=== PATIENT | male | born 1955 | race Caucasian/White ===

== ENCOUNTER 2016-08-08 08:14 | Observation (INO) | payer BC ==
[2016-08-08] MEDS ORDERED: NITROGLYCERIN OINT 1 INCH/GM PACKET TOPICAL STA (08:32)
--- NOTE | 2016-08-08 08:35 | ED ---
Chest Pain HPI - General Chief Complaint: Chest Pain Stated Complaint: chest pain Time Seen by Provider: 08/08/16 08:18 Source: patient, RN notes reviewed Mode of arrival: ambulatory Limitations: no limitations - History of Present Illness Initial Comments: This is a 60-year-old male with a history of heart disease who states he's not feeling well for the past 3 days. He's had some fevers and chills some body aches some numbness all over. He also states she's been having some chest pain mostly between his shoulders currently is 3-5/10 severity gets higher. He has any history of a cardiac stent about 7 years ago. He is still a smoker. He denies any overt cough or phlegm production dysuria hematuria or other symptoms no rhinorrhea no earaches sore throat. She also states that he had an episode yesterday where his right hand never a white and then turn blue he had put it under warm water. He does not have any history of Lakesha DIOP Complaint: chest pain, other - Related Data Home Medications Medication Instructions Recorded Confirmed Atorvastatin [Lipitor] 40 mg PO HS 02/10/15 08/08/16 Clopidogrel Bisulfate [Plavix] 75 mg PO DAILY 02/10/15 08/08/16 Hydrochlorothiazide [Hydrodiuril] 25 mg PO DAILY 02/10/15 08/08/16 Losartan Potassium 100 mg PO DAILY 02/10/15 08/08/16 Metoprolol Tartrate [Lopressor] 50 mg PO BID 02/10/15 08/08/16 Oxybutynin Chloride [Oxybutynin 15 mg PO DAILY 02/10/15 08/08/16 Chloride ER] Aspirin EC [Ecotrin Low Dose] 81 mg PO DAILY 08/08/16 08/08/16 Allergies Allergy/AdvReac Type Severity Reaction Status Date / Time No Known Allergies Allergy Verified 08/08/16 08:56 Review of Systems ROS Statement: Those systems with pertinent positive or pertinent negative responses have been documented in the HPI. ROS Other: All systems not noted in ROS Statement are negative. EKG Findings - EKG Results: EKG: interpreted by JERMAINE, sinus rhythm (EKG shows normal sinus rhythm of 80. R1 70 QRS 80 QT/QTC 332/382 st-t wave changes.) Past Medical History Past Medical History: Coronary Artery Disease (CAD), Cancer, Hyperlipidemia, Hypertension Additional Past Medical History / Comment(s): prostate cancer History of Any Multi-Drug Resistant Organisms: None Reported Past Surgical History: Heart Catheterization With Stent, Prostate Surgery Past Psychological History: No Psychological Hx Reported Smoking Status: Current every day smoker Past Alcohol Use History: Daily Past Drug Use History: None Reported General Exam - General Exam Comments Initial Comments: This is a well-developed well-nourished awake alert oriented x 3 male Limitations: no limitations General appearance: alert, in no apparent distress Head exam: Present: atraumatic, normocephalic, normal inspection Eye exam: Present: normal appearance, PERRL, EOMI. Absent: scleral icterus, conjunctival injection, periorbital swelling ENT exam: Present: normal exam, mucous membranes moist Neck exam: Present: normal inspection. Absent: tenderness, meningismus, lymphadenopathy Respiratory exam: Present: normal lung sounds bilaterally. Absent: respiratory distress, wheezes, rales, rhonchi, stridor Cardiovascular Exam: Present: regular rate, normal rhythm, normal heart sounds. Absent: systolic murmur, diastolic murmur, rubs, gallop, clicks GI/Abdominal exam: Present: soft, normal bowel sounds. Absent: distended, tenderness, guarding, rebound, rigid Extremities exam: Present: normal inspection, full ROM, normal capillary refill. Absent: tenderness, pedal edema, joint swelling, calf tenderness Back exam: Present: normal inspection Neurological exam: Present: alert, oriented X3, CN II-XII intact Psychiatric exam: Present: normal affect, normal mood Skin exam: Present: warm, dry, intact, normal color. Absent: rash Course Vital Signs 08/08/16 08/08/16 08/08/16 08:21 09:19 11:13 Temperature 97 F L Pulse Rate 94 64 70 Respiratory 18 18 18 Rate Blood Pressure 169/75 115/66 102/55 O2 Sat by Pulse 94 L 96 99 Oximetry 08/08/16 12:13 Temperature Pulse Rate 75 Respiratory 16 Rate Blood Pressure 119/62 O2 Sat by Pulse 98 Oximetry Chest Pain MDM - MDM Reevaluation patient reveals no further chest pain at this time. I did discuss the case with him and his family as well as with Rashard the patient will be admitted for evaluation by cardiology. Disposition Clinical Impression: Unstable angina pectoris Disposition: ADMITTED IP TO THIS HOSP Condition: Stable Referrals: Tomas Wetzel MD [Primary Care Provider] - 1-2 days
--- NOTE | 2016-08-08 08:49 | XR ---
EXAMINATION TYPE: XR chest 2V DATE OF EXAM: 08/08/2016 COMPARISON: 03/24/2010 HISTORY: Shortness of breath TECHNIQUE: Frontal and lateral views of the chest are obtained. FINDINGS: Scattered senescent parenchymal changes noted. Hyperinflation compatible with COPD. No evidence for infiltrate. No evidence for atelectasis. Heart size is stable. Mediastinal structures are stable and grossly unremarkable. No evidence for hilar prominence. Degenerative changes dorsal spine. IMPRESSION: 1. No evidence for acute pulmonary disease.
[2016-08-08 09:00] LABS: Aty Lym Flag Slight; CH 33.6; CHCM 35.2; HDW 2.21; HGB 14.4 gm/dL (13.0-17.5); MCH 33.7 pg (25.0-35.0); MCHC 35.1 g/dL (31.0-37.0); MCV 96.1 fL (80.0-100.0); Mean Platelet Volume 6.7; RBC 4.27 m/uL (4.30-5.90); RDW 13.5 % (11.5-15.5); WBC 10.4 k/uL (3.8-10.6); WBC (Perox) 9.78
[2016-08-08 09:10] LABS: ALT 39 U/L (21-72); AST 38 U/L (17-59); Alkaline Phosphatase 88 U/L (38-126); Amylase 55 U/L (30-110); Anion Gap 11 mmol/L; Blood Urea Nitrogen 15 mg/dL (9-20); Calcium 9.6 mg/dL (8.4-10.2); Carbon Dioxide 27 mmol/L (22-30); Chloride 95 mmol/L (98-107); Glucose 111 mg/dL (74-99); Magnesium 1.6 mg/dL (1.6-2.3); Non-African American GFR(MDRD) >60 (>60 ml/min/1.73 sqM); Potassium 3.7 mmol/L (3.5-5.1); Sodium 133 mmol/L (137-145); Total Bilirubin 1.1 mg/dL (0.2-1.3); Total Protein 7.4 g/dL (6.3-8.2)
[2016-08-08 09:13] LABS: INR 1.1 (<1.1); Partial Thromboplastin Time 23.1 sec (22.0-30.0); Prothrombin Time 11.3 sec (9.0-12.0)
[2016-08-08] MEDS ORDERED: RX INFO: IV CONTRAST WAS GIVEN 1 EACH MISC MISCELLANE PRN (09:34)
[2016-08-08 09:40] LABS: Add Differential Manual Differential
[2016-08-08 09:45] LABS: Nucleated Red Blood Cells 0 /100 WBC (0-0); Total Cells Counted 100
[2016-08-08 09:46] LABS: Creatine Kinase 73 U/L (55-170)
[2016-08-08 09:59] LABS: Creatine Kinase MB 0.3 ng/mL (0.0-2.4); Troponin I <0.012 ng/mL (0.000-0.034)
--- NOTE | 2016-08-08 10:47 | CT ---
EXAMINATION TYPE: CT angio chest DATE OF EXAM: 08/08/2016 10:38 AM COMPARISON: NONE HISTORY: Chest pains CT DLP: 229.5 mGycm Automated exposure control for dose reduction was used. CONTRAST: CTA scan of the thorax is performed with IV Contrast, patient injected with 100 mL of Omnipaque 350, pulmonary embolism protocol. . FINDINGS: There are bullous changes in the upper lobes. There is emphysematous changes throughout the lungs. No parenchymal nodules are seen. There is some shotty mediastinal adenopathy. No pathologically enlarged axillary, mediastinal or alvin r adenopathy is seen. There is no evidence of pulmonary embolus. The aorta is normal in caliber without evidence of dissection There is no pleural or pericardial fluid. The heart is not enlarged. There is a hypoattenuating 6.2 cm lesion arising from the upper pole of the right kidney. This likely represents a cyst. Visualized portions of the upper abdomen are otherwise unremarkable. There is hypertrophic spondylosis within the dorsal spine. No bony destructive lesion is seen. IMPRESSION: 1. THIS EXAMINATION IS NEGATIVE FOR PULMONARY EMBOLUS. 2. BULLOUS EMPHYSEMATOUS CHANGES THROUGHOUT THE LUNGS. 3. PROBABLE SIMPLE CYST ARISING THE UPPER POLE OF THE RIGHT KIDNEY. THIS COULD BE CONFIRMED WITH ULTR ASOUND. 4. DEGENERATIVE CHANGES WITHIN THE SPINE.
[2016-08-08] MEDS ORDERED: NITROGLYCERIN SL TABS 0.4 MG TAB SUBLINGUAL PRN ×3 (12:27→14:22)
[2016-08-08] MEDS ORDERED: HEPARIN SODIUM,PORCINE 5,000 UNIT/ML 1 ML VIAL IV ONE (12:27)
[2016-08-08] MEDS ORDERED: HEPARIN SODIUM,PORCINE/D5W PMX 25,000 UNIT in DEXTROSE/WATER 1 500ML.BAG IV SCH (12:30)
[2016-08-08] MEDS: SODIUM CHLORIDE 0.9% 1,000 ML IV SCH (12:46)
--- NOTE | 2016-08-08 12:58 | P.HPIM ---
History of Present Illness Chief complaint: Chest pain History of present illness: The patient is a 60-year-old male with a previous history of coronary artery disease presented to the emergency room with complaints of chest pain that was occurring while usually he's been walking, in the substernal area and at times: back to the shoulder blades. States he's had some chills and fevers over the last couple days. No unusual cough or phlegm production or hemoptysis. Pain does not seem to last long and usually stops at rest. Previous history of stenting. The patient still has risk factor of smoking history. Past medical history: The patient did have a percutaneous angioplasty performed back in March 2010. History of hypertension History of hyperlipidemia History of tobacco use History of previous prostate malignancy and radical prostatectomy in 2012 History of colonic polyps Home medications Lipitor 40 mg Plavix 75 mg Hydrochlorothiazide 25 mg Losartan 100 mg Lopressor 50 mg twice a day Oxybutynin 15 mg daily Aspirin 81 mg daily No known ALLERGIES Review of systems: As in the history of present illness. Patient denies any headache or visual disturbances. Mild shortness of breath with exertion. No cough. No phlegm production. No nausea or vomiting. No dysuria or hematuria. No diarrhea or blood in stool. No unusual leg edema. Family history: Brother with diabetes. Social history: The patient does smokes daily. Lives locally with his . Denies any excessive alcohol intake. Physical examination: The patient seen in emergency room on the stretcher. He overall appears comfortable and in no acute distress. Vital signs revealed a blood pressure varying from 169/75 down 202/55 and presently 119/62 with a pulse of 75 and respirations 16 and 98% saturation. Head is atraumatic. Extraocular movements intact. Pupils equal and reactive to light. Head and neck is supple without adenopathy, thyromegaly or bruits detected. Lungs were clear to auscultation. No generally diminished. Heart tones regular with normal S1 and S2 and no murmurs. Abdomen is soft and nontender without organomegaly. Rectal and genital exam was deferred. No edema. Neurologically he is alert and oriented. No cranial nerve deficits. Moving all extremities without focal weakness. Laboratory results: White count was 10.4 with a hemoglobin 14.4 and a platelet count of 300. INR is 1.1. D-dimer is elevated 0.77. Sodium is 133 with potassium 3.7. BUN of 15 with creatinine of 0.75 given him a GFR greater than 60. Blood sugar was 111. CPK was normal at 73 and troponin less than 0.012. BNP 264. Liver function tests good. EKG showed a normal sinus rhythm without ischemic changes. Chest x-ray showed no evidence of acute pulmonary disease Patient did undergo a chest CT angiogram This was negative for pulmonary embolus. It did show some bullous changes of emphysema throughout the lungs. Likely cyst in the right kidney and degenerative changes of the spine. Impressions: 1. Somewhat atypical chest pain but may be consistent with angina and possible unstable. No evidence for a definitive cardiac ischemia at this time. She does have multiple risk factors as delineated in the past medical history along with previous history of coronary artery disease. 2. Likely right renal cyst on computed tomography scan. Plans: Patient is to be observed and have consult with cardiology for further evaluation. Further EKG and enzymes to be done. He is to be kept nothing by mouth in the morning for possible further evaluation per cardiology. He is to continue on heparin and his medications for blood pressure and nitroglycerin. Ultrasound of the kidney later when stable. Past Medical History Past Medical History: Coronary Artery Disease (CAD), Cancer, Hyperlipidemia, Hypertension Additional Past Medical History / Comment(s): prostate cancer History of Any Multi-Drug Resistant Organisms: None Reported Past Surgical History: Heart Catheterization With Stent, Prostate Surgery Past Psychological History: No Psychological Hx Reported Smoking Status: Current every day smoker Past Alcohol Use History: Daily Past Drug Use History: None Reported Medications and Allergies Home Medications Medication Instructions Recorded Confirmed Type Atorvastatin [Lipitor] 40 mg PO HS 02/10/15 08/08/16 History Clopidogrel Bisulfate [Plavix] 75 mg PO DAILY 02/10/15 08/08/16 History Hydrochlorothiazide [Hydrodiuril] 25 mg PO DAILY 02/10/15 08/08/16 History Losartan Potassium 100 mg PO DAILY 02/10/15 08/08/16 History Metoprolol Tartrate [Lopressor] 50 mg PO BID 02/10/15 08/08/16 History Oxybutynin Chloride [Oxybutynin 15 mg PO DAILY 02/10/15 08/08/16 History Chloride ER] Aspirin EC [Ecotrin Low Dose] 81 mg PO DAILY 08/08/16 08/08/16 History Allergies Allergy/AdvReac Type Severity Reaction Status Date / Time No Known Allergies Allergy Verified 08/08/16 08:56 Physical Exam Vitals: Vital Signs Temp Pulse Resp BP Pulse Ox 08/08/16 12:13 75 16 119/62 98 08/08/16 11:13 70 18 102/55 99 08/08/16 09:19 64 18 115/66 96 08/08/16 08:21 97 F L 94 18 169/75 94 L Intake and Output 08/07/16 08/08/16 08/08/16 22:59 06:59 14:59 Other: Weight 63.503 kg Patient Weight 08/09/16 06:59 Weight 63.503 kg Results CBC & Chem 7: 08/08/16 08:25 08/08/16 08:25 Labs: Abnormal Lab Results - Last 24 Hours (Table) 08/08/16 08/08/16 08/08/16 Range/Units 08:25 08:25 08:25 RBC 4.27 L (4.30-5.90) m/uL Monocytes # (Manual) 1.2 H (0-1.0) k/uL D-Dimer 0.77 H (<0.60) mg/L FEU Sodium 133 L (137-145) mmol/L Chloride 95 L (98-107) mmol/L Glucose 111 H (74-99) mg/dL
[2016-08-08] MEDS ORDERED: SODIUM CHLORIDE 0.9% 1,000 ML in EMPTY BAG 1 BAG IV ONE (14:16)
[2016-08-08] MEDS ORDERED: ALPRAZolam 0.25 MG TAB PO PRN ×2 (14:16→14:22)
[2016-08-08] MEDS ORDERED: ALPRAZolam 0.5 MG TAB PO PRN ×2 (14:16→14:22)
[2016-08-08] MEDS ORDERED: ATORVASTATIN 80 MG TAB PO STA ×2 (14:16→14:24)
[2016-08-08] MEDS ORDERED: ASPIRIN 325 MG TAB PO STA ×2 (14:16→14:24)
--- NOTE | 2016-08-08 14:41 | CONS ---
DATE OF CONSULTATION: CHIEF COMPLAINT: Chest pain. Jayson is a 60-year-old gentleman who comes to hospital with chest pain. He describes it as a precordial chest pressure, associated with some shortness of breath. There is no history of pain that radiated to neck or arm. At the time of my evaluation, he is comfortable at rest. He has known coronary artery disease and had prior angioplasty. He also has peripheral vascular disease and underwent stent in his right leg. At the time of my evaluation, first set of troponin is negative. D-dimer was elevated. Hence he had a CTA of the chest that is negative for pulmonary embolism. He has bullous emphysema with COPD. Given his known coronary artery disease and symptoms suggestive of unstable angina, I advised the patient to undergo cardiac catheterization with a view to performing angioplasty. He has been explained of risks, benefits, and alternatives, understood and accepted. Past medical history is significant for coronary artery disease, status post angioplasty, hypertension, dyslipidemia, peripheral vascular disease, status post angioplasty of the right leg. Medications include Lipitor 40 q. daily, Lopressor 50 b.i.d., losartan 100 q. daily, HydroDIURIL, Plavix and aspirin. ALLERGIES: There are no known drug allergies. FAMILY HISTORY: Negative for premature coronary artery disease. SOCIAL HISTORY: Significant for smoking. There is no history of EtOH abuse, or drug abuse. REVIEW OF SYSTEMS: HEENT: Unremarkable. CARDIAC: As described above. RESPIRATORY: Negative. GI: Negative. GENITOURINARY: Negative. ALLERGY/IMMUNOLOGY: Negative. SKIN: Negative. MUSCULOSKELETAL: Significant for arthritis. PSYCHOSOCIAL: Negative. ENDOCRINE: Negative. DERMATOLOGY: Negative. CONSTITUTIONAL: Negative. ONCOLOGICAL: Negative The rest of the system review is not relevant. On exam, he is comfortable at rest. Afebrile. Vital signs are stable. There is no jugular venous distention. Carotid upstroke is normal. There is no bruit. Chest exam reveals good air entry bilaterally. Heart exam reveals first and second heart sounds. No gallop. No murmur, no rub. Abdomen is soft, nontender. Exam of extremities did not reveal any edema. Peripheral pulses are felt. 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 Labs show a hemoglobin of 14.4. Creatinine is 0.7. Troponin is negative. D-dimer is elevated. CT chest is negative. ASSESSMENT: 1. Unstable angina in a patient with known coronary artery disease, status post prior angioplasty. 2. Peripheral vascular disease, status post angioplasty. 3. Hypertension. 4. Dyslipidemia. 5. Smoking. PLAN: I advised the patient to quit smoking, advised him to undergo cardiac catheterization. Will obtain a 2-D echo.
[2016-08-08] MEDS ORDERED: HEPARIN SODIUM,PORCINE 5,000 UNIT/ML 1 ML VIAL IV STA (18:59)
[2016-08-08] MEDS: ATORVASTATIN 40 MG TAB PO SCH (20:29)
[2016-08-08] MEDS: METOPROLOL TARTRATE 50 MG TAB PO SCH (20:29)
[2016-08-08] MEDS: ACETAMINOPHEN TAB 325 MG TAB PO PRN (20:29)
[2016-08-08] MEDS: NITROGLYCERIN OINT 1 INCH/GM PACKET TOPICAL SCH (20:32)
[2016-08-09] MEDS: NITROGLYCERIN OINT 1 INCH/GM PACKET TOPICAL SCH ×2 (01:24→05:17)
[2016-08-09] MEDS ORDERED: HEPARIN SODIUM,PORCINE 5,000 UNIT/ML 1 ML VIAL IV PRN (01:35)
[2016-08-09] MEDS: ACETAMINOPHEN TAB 325 MG TAB PO PRN ×3 (03:14→23:18)
[2016-08-09] MEDS: LOSARTAN 50 MG TAB PO SCH (07:40)
[2016-08-09] MEDS: OXYBUTYNIN 15 MG TAB.ER.24 PO SCH (07:40)
[2016-08-09] MEDS: METOPROLOL TARTRATE 50 MG TAB PO SCH ×2 (07:40→21:19)
[2016-08-09] MEDS: CLOPIDOGREL 75 MG TAB PO SCH (07:40)
[2016-08-09] MEDS: ASPIRIN 325 MG TAB PO SCH (07:41)
[2016-08-09] MEDS: HYDROCHLOROTHIAZIDE 25 MG TAB PO SCH (07:41)
--- NOTE | 2016-08-09 08:21 | P.PN ---
Progress Note - Text The patient is a 60-year-old male with a previous history of coronary artery disease and stenting that presented yesterday with chest pain. Patient does have multiple risk factors is the does have tobacco dependence, hypertension, hyperlipidemia. This morning apparently he is up in the shower. Vital signs reveal a temperature of 98.4 up to 101. Pulse is 81 with respirations 18 and blood pressure 102/57 and he is 94% saturated on room air. Laboratory results: Patient is on heparin with a PTT of 48.1. Troponins have been less than 0.0123 now. Impressions and plans: This gentleman who is 60 years old presented with chest pain to the emergency room yesterday and with multiple risk factors as delineated above. But also with elevated temperatures and general achiness intermittently that is consistent possibly with a viral syndrome. Chest x-ray has been negative. We'll repeat his CBC. We'll obtain a urinalysis. Discussed with cardiology. Dr. Killian wishes to hold off on catheterization at this time in light of the elevated temperatures. We have ordered a urinalysis and urine cultures along with 2 blood cultures to be obtained. We'll hold off on antibiotics at this time.
--- NOTE | 2016-08-09 08:52 | PN ---
A 60-year-old gentleman who was admitted to hospital with unstable angina. I evaluated him yesterday and was going to do a cardiac cath on him today. His CT chest was negative for pulmonary embolism; however, overnight he developed febrile illness, his T-max is around 102.2. He is otherwise doing well. Denies chest pain or difficulty in breathing. I am going to cancel the cath today, stop the IV heparin and put him on subQ heparin. He is on aspirin, Lipitor, Plavix, Lopressor and nitrates. On exam, comfortable at rest. Vital signs are stable. There is no jugular venous distention. Chest exam reveals good air entry bilaterally. Heart exam reveals first and second heart sounds. No gallop. No murmur, no rub. Abdomen is soft, nontender. Exam of extremities did not reveal any edema. Peripheral pulses are felt. ASSESSMENT: 1. Chest pain myocardial infarction ruled out. 2. Febrile illness, currently under work-up. PLAN: Will stop the IV heparin. Follow the echocardiogram, canceled the cath and consider pursue the work-up for the fever. Blood cultures have been ordered and if he is doing well, home tomorrow. I will follow him up and consider an outpatient stress test on him.
[2016-08-09 09:19] LABS: Aty Lym Flag Slight; CH 33.5; CHCM 36.1; HCT 39.2 % (39.0-53.0); HDW 2.36; HGB 14.1 gm/dL (13.0-17.5); MCH 33.6 pg (25.0-35.0); MCHC 36.1 g/dL (31.0-37.0); MCV 93.2 fL (80.0-100.0); Mean Platelet Volume 6.7; RBC 4.21 m/uL (4.30-5.90); WBC 8.7 k/uL (3.8-10.6); WBC (Perox) 8.89
[2016-08-09 10:10] LABS: Add Differential Manual Differential
[2016-08-09 10:12] LABS: Manual Review Performed; Nucleated Red Blood Cells 0 /100 WBC (0-0); Total Cells Counted 100
[2016-08-09 10:54] VITALS: BMI 20.6
[2016-08-09] MEDS: ISOSORBIDE MONONITRATE ER 30 MG TAB.ER.24H PO SCH (10:59)
--- NOTE | 2016-08-09 12:14 | ECHOF ---
Referral Reason:chest pain MEASUREMENTS -------- HEIGHT: 170.2 cm WEIGHT: 59.4 kg BP: 107/56 IVSd: 1.2 cm (0.6 - 1.1) LVIDd: 3.6 cm (3.9 - 5.3) LVPWd: 1.1 cm (0.6 - 1.1) IVSs: 1.5 cm LVIDs: 2.3 cm LVPWs: 1.4 cm LAESV Index (A-L): 7.02 ml/m Ao Diam: 3.7 cm (2.0 - 3.7) AV Cusp: 1.9 cm (1.5 - 2.6) LA Diam: 2.6 cm (2.7 - 3.8) MV E Gregory: 0.66 m/s MV DecT: 359 ms MV A Gregory: 1.00 m/s MV E/A Ratio: 0.66 RAP: 5.00 mmHg RVSP: 9.94 mmHg FINDINGS -------- Sinus rhythm. This was a technically adequate study. Overall left ventricular systolic function is normal with, an EF between 60 - 65 %. The right ventricle is normal in size and function. Normal LA size by volume 22+/-6 ml/m2. The right atrium is normal in size. Aortic valve is trileaflet and is mildly thickened. There is no evidence of aortic regurgitation. There is no evidence of aortic stenosis. Mild mitral annular calcification present. There is trace to mild mitral regurgitation. Trace tricuspid regurgitation present. There is no evidence of pulmonary hypertension. The right ventricular systolic pressure, as measured by Doppler, is 9.94mmHg. The pulmonic valve is normal. The aortic root size is normal. Normal inferior vena cava with normal inspiratory collapse consistent with estimated right atrial pressure of 5 mmHg. The pericardium is normal. There is no pericardial effusion. CONCLUSIONS -------- 1. Sinus rhythm. 2. The aortic root size is normal. 3. There is no pericardial effusion. 4. Overall left ventricular systolic function is normal with, an EF between 60 - 65 %. 5. Normal LA size by volume 22+/-6 ml/m2. 6. Aortic valve is trileaflet and is mildly thickened. 7. Mild mitral annular calcification present. 8. There is trace to mild mitral regurgitation. 9. Trace tricuspid regurgitation present. 10. There is no evidence of pulmonary hypertension. 11. The right ventricular systolic pressure, as measured by Doppler, is 9.94mmHg. DOCK MANAGER: Lui Canseco RDCS
[2016-08-09 12:39] LABS: Appearance,Urine Clear (Clear); Bilirubin,Urine Negative (Negative); Glucose,Urine (UA) Negative (Negative); Ketones,Urine Negative (Negative); Leukocyte Esterase,Urine Negative (Negative); Nitrite,Urine Negative (Negative); PH, Urine 7.5 (5.0-8.0); Protein,Urine Negative (Negative); Specific Gravity,Urine 1.011 (1.001-1.035); UA Billing (MACRO vs. MICRO) CHEM
[2016-08-09] MEDS: SODIUM CHLORIDE 0.9% 1,000 ML IV SCH (16:34)
[2016-08-09] MEDS: ATORVASTATIN 40 MG TAB PO SCH (21:19)
--- NOTE | 2016-08-10 07:54 | P.DS ---
Providers Date of admission: 08/08/16 12:27 Attending physician: Tomas Wetzel Consults: 08/08/16 12:27 Consult Physician Urgent Consulting Provider: Thelma Lord Consult Reason/Comments: Chest pain Do you want consulting provider notified?: Yes Primary care physician: Tomas Wetzel The patient is a 60-year-old gentleman with the presentation to the emergency room of chest pain and weakness. Patient to also had a strong history with previous coronary artery disease and stenting in the past along with other risk factors tobacco dependence, hypertension and hyperlipidemia. Patient placed in observation was also placed on heparin and troponins evaluated to 3 which were less than 0.12. EKG did not show any definitive changes. Chest x-ray did not show any acute infiltrates and his urinalysis was clear. Other testing with echocardiogram revealed ejection fraction of 60-65%. No pericardial infusion effusion was seen. Normal left atrial size. Patient did have intermittent temperatures during the course of his observation. He was seen in consultation by cardiology and please refer to the consult. Initially cardiac catheterization was entertained but with recurrent temperatures this was placed to on hold. Cultures have been ordered but still at this point no definite sign of infection although patient does complain of some loose and painful teeth on further questioning. At this time his temperature decreased from 100.9 down to 98.2 and his heart rate is 68 respirations 18 and blood pressure 105/56. O2 saturation is 97 on room air. Lung and heart examination is clear at this time. Abdomen is nontender. No neurological changes noted. The patient has been up and ambulating on the observation floor without arrhythmias or chest pain or other acute symptomatology. At this time plans are to discharge to home with follow-up next week in the office. And follow-up with [facility]. Likely will need further cardiac evaluation with stress testing as discussed with patient. Discharge medications, patient to continue his home medications Atorvastatin 40 mg at at bedtime Oxybutynin 15 mg daily Lopressor 50 mg twice a day Losartan 100 mg daily Hydrochlorothiazide 25 mg daily Plavix 75 mg daily Aspirin 81 mg daily We will also be adding amoxicillin 500 mg, 2 tablets twice a day for 7 days. Smoking cessation discussed and low cholesterol diet recommended. Discharge diagnoses: 1. Chest pain, pleurisy likely related to viral illness. 2. Coronary artery disease with previous stenting back in 2010. 3. Hypertension 4. Hyperlipidemia 5. Continued tobacco usage 5. History of prostate cancer and radical prostatectomy in 2012 6. History of colon polyps. 7. Periodontal infection Patient Condition at Discharge: Stable Plan - Discharge Summary New Discharge Prescriptions: No Action Oxybutynin Chloride [Oxybutynin Chloride ER] 15 mg PO DAILY Metoprolol Tartrate [Lopressor] 50 mg PO BID Hydrochlorothiazide [Hydrodiuril] 25 mg PO DAILY Clopidogrel Bisulfate [Plavix] 75 mg PO DAILY Losartan Potassium 100 mg PO DAILY Atorvastatin [Lipitor] 40 mg PO HS Aspirin EC [Ecotrin Low Dose] 81 mg PO DAILY Discharge Medication List Atorvastatin [Lipitor] 40 mg PO HS 02/10/15 [History] Clopidogrel Bisulfate [Plavix] 75 mg PO DAILY 02/10/15 [History] Hydrochlorothiazide [Hydrodiuril] 25 mg PO DAILY 02/10/15 [History] Losartan Potassium 100 mg PO DAILY 02/10/15 [History] Metoprolol Tartrate [Lopressor] 50 mg PO BID 02/10/15 [History] Oxybutynin Chloride [Oxybutynin Chloride ER] 15 mg PO DAILY 02/10/15 [History] Aspirin EC [Ecotrin Low Dose] 81 mg PO DAILY 08/08/16 [History] Follow up Appointment(s)/Referral(s): Tomas Wetzel MD [Primary Care Provider] - 1-2 days
[2016-08-10 07:55] LABS: Aty Lym Flag Slight; CH 33.7; CHCM 35.9; HCT 37.9 % (39.0-53.0); HDW 2.34; HGB 13.6 gm/dL (13.0-17.5); MCH 33.8 pg (25.0-35.0); MCHC 35.8 g/dL (31.0-37.0); MCV 94.3 fL (80.0-100.0); RBC 4.02 m/uL (4.30-5.90); RDW 12.8 % (11.5-15.5); WBC 7.6 k/uL (3.8-10.6); WBC (Perox) 7.83
[2016-08-10 08:20] VITALS: BP 109/66; PULSE 52; RESP 16; TEMP 98.7
--- NOTE | 2016-08-10 09:25 | PN ---
Jayson is a 61-year-old gentleman who is admitted to hospital with chest pain. Subsequently had fever and had just been started on antibiotics. He is feeling much better now. Vital signs are stable. There is no jugular venous distention. Chest exam reveals good air entry bilaterally. Heart exam reveals first and second heart sounds. No gallop. Abdomen is soft. Exam of the extremities did not reveal edema. Peripheral pulses are felt. ASSESSMENT: 1. Chest pain, myocardial infarction ruled out. 2. Febrile illness of unclear etiology. PLAN: Patient is stable to be discharged home and I will consider an outpatient stress test on him.
[2016-08-10] MEDS: ASPIRIN 325 MG TAB PO SCH (10:01)
[2016-08-10] MEDS: HYDROCHLOROTHIAZIDE 25 MG TAB PO SCH (10:01)
[2016-08-10] MEDS: METOPROLOL TARTRATE 50 MG TAB PO SCH (10:01)
[2016-08-10] MEDS: LOSARTAN 50 MG TAB PO SCH (10:01)
[2016-08-10] MEDS: ISOSORBIDE MONONITRATE ER 30 MG TAB.ER.24H PO SCH (10:01)
[2016-08-10] MEDS: CLOPIDOGREL 75 MG TAB PO SCH (10:01)
[2016-08-10] MEDS: OXYBUTYNIN 15 MG TAB.ER.24 PO SCH (10:02)
[2016-08-10 10:51] LABS: Add Differential Manual Differential
[2016-08-10 10:54] LABS: Manual Review Performed; Nucleated Red Blood Cells 0 /100 WBC (0-0); RBC Morphology Normal; Total Cells Counted 100
== END 2016-08-10 09:51 | disposition home or self-care (01) ==
LOC: EC 08:14 → 3OBS 12:27 → UNDODISOB 14:14
PROVIDERS: ADMIT Internal Medicine; ATTEND Internal Medicine
DX: I25.110 Atherosclerotic heart disease of native coronary artery with unstable angina pectoris (principal); F17.200 Nicotine dependence, unspecified, uncomplicated; E78.5 Hyperlipidemia, unspecified; I10 Essential (primary) hypertension; Z85.46 Personal history of malignant neoplasm of prostate; I73.9 Peripheral vascular disease, unspecified; J44.9 Chronic obstructive pulmonary disease, unspecified; Z79.899 Other long term (current) drug therapy; Z79.02 Long term (current) use of antithrombotics/antiplatelets; Z79.82 Long term (current) use of aspirin; Z95.5 Presence of coronary angioplasty implant and graft
CPT/HCPCS: 96366 ×2; 96365; 99285; 36415; 93005; 93306; 85379; 83880; 80053; 82150; 82550; 82553; 83690; 83735; 84484; 85025 ×3; 85610; 85730 ×2; 86140; 81003; 87040; 87086; 87077; 87186; 71020; 71275; G0378 ×3; J1644 ×2; Q9967

== ENCOUNTER → 2016-08-15 | Outpatient (CLI) | payer BC ==
--- NOTE | 2016-08-15 13:23 | US ---
EXAMINATION TYPE: US kidneys/renal and bladder DATE OF EXAM: 08/15/2016 COMPARISON: NONE CLINICAL HISTORY: N28.1 cyst on rt kidney. pt states he was total abnormal urine sample, no complaint s of pain EXAM MEASUREMENTS: Right Kidney: 13.1 x 4.9 x 7.4 cm Left Kidney: 10.7 x 5.8 x 6.0 cm Right Kidney: 5.5 x 5.8 x 5.4cm simple cyst at the upper pole Left Kidney: wnl Bladder: wnl Bilateral Jets seen: no There is no evidence for hydronephrosis at this point in time. No nephrolithiasis is seen. No klever rning solid or cystic masses are identified. A 5.8 cm simple appearing cyst upper pole level of right kidney is noted. The urinary bladder is anechoic. Bilateral ureteral jets are not seen. IMPRESSION: A 5.8 cm simple appearing cyst upper pole level right kidney otherwise unremarkable study.
== END | disposition home or self-care (01) ==
LOC: RADUSWWP 12:52
PROVIDERS: ATTEND Internal Medicine
DX: N28.1 Cyst of kidney, acquired (principal)
CPT/HCPCS: 76770

== ENCOUNTER → 2016-12-06 | Outpatient (CLI) | payer BC ==
--- NOTE | 2016-12-06 09:33 | CT ---
EXAMINATION TYPE: CT urogram wo/w con DATE OF EXAM: 12/06/2016 COMPARISON: Renal ultrasound dated 08/15/2016 HISTORY: Hematuria, history of prostate CA CT DLP: 1758 mGycm, Automated Exposure Control for Dose Reduction was Utilized. CONTRAST: CT scan of the abdomen and pelvis is performed with oral and without and with IV Contrast, patient in jected with 100 mL of Omnipaque 300. FINDINGS: LUNG BASES: No significant abnormality is appreciated. LIVER/GB: No significant abnormality is appreciated. No radiopaque gallstones. PANCREAS: Hypoattenuated structure within the uncinate process of the pancreas is seen and could repr esent volume averaging from the adjacent duct versus focal lesion measuring approximately 1.1 x 0.8 c m seen on series 6 image 22. There is upstream ductal prominence without enlargement. Remainder the p ancreatic parenchyma enhances homogeneously.. SPLEEN: No significant abnormality is seen. ADRENALS: No significant abnormality is seen. KIDNEYS: There is redemonstration of a simple appearing 6.4 x 5.2 cm exophytic right upper pole renal cyst without internal complexity. Nonobstructing punctate 1 mm right lower pole renal calculus is id entified. No evidence of obstructive uropathy within either kidney. Exophytically emanating from the upper pole of the left kidney there is a fluid attenuated 7 mm probable renal cyst. However this is t oo small to accurately characterize. BOWEL: Few sigmoid diverticula are present without pericolonic fat stranding. PROSTATE/SEMINAL VESICLES: Surgically absent. LYMPH NODES: No greater than 1cm abdominal or pelvic lymph nodes are appreciated. OSSEOUS STRUCTURES: Multilevel degenerative disc disease is seen of the visualized thoracolumbar and lumbosacral spine.. OTHER: Aortoiliac graft is seen demonstrating patency with downstream stenosis of the common iliac ar teries of approximately 50%. Circumferential moderate calcific and noncalcific atheromatous plaquing is seen of the abdominal aorta and its branches. The urinary bladder is incompletely distended incomp letely evaluated only partially filled with contrast, however circumferential urinary bladder wall th ickening is seen that may relate to incomplete distention or cystitis.. IMPRESSION: 1. 6.4 cm right exophytic simple renal cyst without internal complexity. 7 mm left renal lesion that is too small to accurately characterize but likely represents a renal cyst. 2. Circumferential urinary bladder wall thickening that may relate to incomplete distention or cystit is. Correlate with urinalysis. 3. Hypoattenuation within the uncinate process of the pancreas that could represent pancreatic mass v ersus volume averaging with the pancreatic duct. MRCP with and without contrast is recommended to ens ure no underlying pancreatic mass as there is upstream ductal prominence but no enlargement. 4. Sigmoid diverticulosis without evidence of diverticulitis. 5. Aortoiliac graft patency with downstream stenosis of the common iliac arteries approximately 50%. 6. Surgical absence of the prostate.
== END | disposition home or self-care (01) ==
LOC: RADCTMAIN 07:01
PROVIDERS: ATTEND Urology
DX: N28.1 Cyst of kidney, acquired (principal); K57.30 Diverticulosis of large intestine without perforation or abscess without bleeding; Z90.79 Acquired absence of other genital organ(s)
CPT/HCPCS: 74178; 74400; Q9967

== ENCOUNTER → 2016-12-24 | Outpatient (CLI) | payer BC ==
--- NOTE | 2016-12-24 23:53 | MR ---
EXAMINATION TYPE: MR pancreas / mrcp wo/w con DATE OF EXAM: 12/24/2016 COMPARISON: CT scan 12/06/2016 HISTORY: Possible pancreatic mass. CONTRAST: Standard multiplanar, multisequence MRI departmental protocol utilizing 7.5 mL intravenous Gadavist g adolinium contrast. FINDINGS: There is a 5 cm cortical cyst on the upper pole right kidney. There is no adrenal mass. Kid neys show no hydronephrosis. Liver shows no focal defect. Bile ducts are not dilated. There is no evidence of pancreatic mass. Geiger creatic duct has normal size. Specifically there is no evidence of a mass involving the uncinate proc ess of the pancreas. Spleen appears normal. There is no ascites. There is no evidence of pleural effu lorelei. There is no sign of retroperitoneal adenopathy. MRCP images show normal appearing biliary tree. Gallbladder appears normal. I see no gallbladder wall thickening. There is 1 cm atypical cyst on the upper pole of the left kidney. I see no pathologic enhancement. IMPRESSION: Normal pancreas. Normal MRCP exam. Renal cysts.
== END | disposition home or self-care (01) ==
LOC: RADMRIMAIN 19:50
PROVIDERS: ATTEND Internal Medicine
DX: R93.8 Abnormal findings on diagnostic imaging of other specified body structures (principal)
CPT/HCPCS: 74183; A9581

== ENCOUNTER 2017-06-26 06:12 | Emergency (ER) | payer BC ==
[2017-06-26 06:21] VITALS: BP 146/85; PULSE 81; RESP 18; TEMP 97.6
[2017-06-26] MEDS ORDERED: OXYMETAZOLINE 0.05% NASL SPRAY 1 SPRAY BOTTLE NASAL STA (07:19)
--- NOTE | 2017-06-26 07:42 | ED ---
General Adult HPI - General Chief complaint: Recheck/Abnormal Lab/Rx Stated complaint: NOSE BLEED Time Seen by Provider: 06/26/17 07:09 Source: patient Mode of arrival: ambulatory Limitations: no limitations - History of Present Illness Initial comments: Patient presents with a nosebleed. He has epistaxis from the right nostril. He tried holding pressure. It did not work. He denies any lightheadedness or dizziness. He has no chest pain or shortness of breath. He takes aspirin and Plavix, but no other blood thinners. He has no focal weakness or trouble walking. He has no belly or back pain. He has no chest pain. - Related Data Home Medications Medication Instructions Recorded Confirmed Atorvastatin [Lipitor] 40 mg PO HS 02/10/15 06/26/17 Clopidogrel Bisulfate [Plavix] 75 mg PO DAILY 02/10/15 06/26/17 Hydrochlorothiazide [Hydrodiuril] 25 mg PO DAILY 02/10/15 06/26/17 Losartan Potassium 100 mg PO DAILY 02/10/15 06/26/17 Metoprolol Tartrate [Lopressor] 50 mg PO BID 02/10/15 06/26/17 Oxybutynin Chloride [Oxybutynin 15 mg PO DAILY 02/10/15 06/26/17 Chloride ER] Aspirin EC [Ecotrin Low Dose] 81 mg PO DAILY 08/08/16 06/26/17 Previous Rx's Medication Instructions Recorded Cephalexin [Keflex] 500 mg PO Q6HR #40 cap 06/26/17 Allergies Allergy/AdvReac Type Severity Reaction Status Date / Time No Known Allergies Allergy Verified 06/26/17 08:07 Review of Systems ROS Statement: Those systems with pertinent positive or pertinent negative responses have been documented in the HPI. ROS Other: All systems not noted in ROS Statement are negative. Past Medical History Past Medical History: Coronary Artery Disease (CAD), Cancer, Hyperlipidemia, Hypertension, Vascular Disorder Additional Past Medical History / Comment(s): Prostate cancer with prostatectomy , numbness bilateral hands, PVD, recent tooth infection-completed ABX. History of Any Multi-Drug Resistant Organisms: None Reported Past Surgical History: Heart Catheterization With Stent, Hernia Repair, Orthopedic Surgery, Prostate Surgery Additional Past Surgical History / Comment(s): Prostatectomy, PCI with stent to LAD, arteriogram, R common iliac stent, R eye muscle repair as child, colonoscopy, bilateral inquinal hernia repairs, L middle finger fx with surgery. Past Anesthesia/Blood Transfusion Reactions: No Reported Reaction Date of Last Stent Placement:: 03/28/10 Past Psychological History: No Psychological Hx Reported Smoking Status: Current every day smoker Past Alcohol Use History: Daily Past Drug Use History: None Reported - Past Family History Father Additional Family Medical History / Comment(s): Father at the age of 50yrs from brain aneurysm rupture. Mother Family Medical History: Diabetes Mellitus, Pneumonia Additional Family Medical History / Comment(s): Mother of pneumonia at the age of 50yrs. General Exam Limitations: no limitations General appearance: alert, in no apparent distress Head exam: Present: atraumatic, normocephalic, normal inspection Eye exam: Present: normal appearance, PERRL, EOMI. Absent: scleral icterus, conjunctival injection, periorbital swelling ENT exam: Present: normal oropharynx, other (Right nostril epistaxis) Neck exam: Present: normal inspection. Absent: tenderness, meningismus, lymphadenopathy Respiratory exam: Absent: respiratory distress Extremities exam: Present: normal inspection, full ROM, normal capillary refill. Absent: tenderness, pedal edema, joint swelling, calf tenderness Back exam: Present: normal inspection Neurological exam: Present: alert, oriented X3 Psychiatric exam: Present: normal affect Skin exam: Present: warm, dry Course Vital Signs 06/26/17 06:17 Temperature 97.6 F Pulse Rate 81 Respiratory 18 Rate Blood Pressure 146/85 O2 Sat by Pulse 96 Oximetry Medical Decision Making - Medical Decision Making Patient presented with epistaxis. I applied a nasal packing to the right nostril. Epistaxis has resolved. Patient is stable for discharge. He is started on antibiotics. He will follow-up with his primary care doctor and ENT. I instructed him to return to the emerge department immediately if his symptoms return, or if he develops any other proms or complaints. Disposition Clinical Impression: Epistaxis Disposition: HOME SELF-CARE Condition: Good Instructions: Nosebleed (ED) Prescriptions: Cephalexin [Keflex] 500 mg PO Q6HR #40 cap Is patient prescribed a controlled substance at d/c from ED?: No Referrals: Tomas Wetzel MD [Primary Care Provider] - 1-2 days Stefano Jiang DO [Doctor of Osteopathic Medicine] - 1-2 days
--- NOTE | 2017-06-28 10:39 | TCOM ---
Documentation Clarification OP Dear Rafael MURPHY MD Please do addendum for the packing material of Epistaxis procedure. Thank you, Estelle Castelan [employer] If you have any question, Please contact cytogenetics laboratory manager at [phone] [facility]
== END 2017-06-26 08:48 | disposition home or self-care (01) ==
LOC: EC 06:12
DX: R04.0 Epistaxis (principal); E78.5 Hyperlipidemia, unspecified; I10 Essential (primary) hypertension; I25.10 Atherosclerotic heart disease of native coronary artery without angina pectoris; Z85.46 Personal history of malignant neoplasm of prostate; F17.200 Nicotine dependence, unspecified, uncomplicated; Z79.82 Long term (current) use of aspirin; Z79.899 Other long term (current) drug therapy; Z79.02 Long term (current) use of antithrombotics/antiplatelets; Z95.5 Presence of coronary angioplasty implant and graft
CPT/HCPCS: 30901; 36415; 85025; 85610; 96374; 99283

== ENCOUNTER 2017-06-26 16:33 | Emergency (ER) | payer BC ==
[2017-06-26 17:14] VITALS: RESP 18
[2017-06-26] MEDS ORDERED: SODIUM CHLORIDE 0.9% 500 ML IV ONE (17:47)
[2017-06-26] MEDS ORDERED: LABETALOL 5 MG/ML VIAL MDV IVP STA ×2 (17:48→18:13)
[2017-06-26 18:10] LABS: Basophils % (A) 1 %; Eosinophils # (A) 0.2 k/uL (0-0.7); Eosinophils % (A) 3 %; HCT 39.2 % (39.0-53.0); HGB 13.9 gm/dL (13.0-17.5); Lymphocytes # (A) 2.2 k/uL (1.0-4.8); Lymphocytes % (A) 27 %; MCH 33.8 pg (25.0-35.0); MCHC 35.5 g/dL (31.0-37.0); MCV 95.1 fL (80.0-100.0); Mean Platelet Volume 6.5; Monocytes # (A) 0.6 k/uL (0-1.0); Monocytes % (A) 8 %; Neutrophils # (A) 4.7 k/uL (1.3-7.7); Neutrophils % (A) 59 %; Platelet Count 339 k/uL (150-450); RBC 4.13 m/uL (4.30-5.90); RDW 14.5 % (11.5-15.5)
--- NOTE | 2017-06-26 18:10 | ED ---
ENT HPI - General Chief complaint: ENT Stated complaint: Nosebleed Time Seen by Provider: 06/26/17 17:37 Source: patient Mode of arrival: ambulatory Limitations: no limitations - History of Present Illness Initial comments: 61-year-old male patient presents to the emergency department today for evaluation of nosebleed in the right nostril. Patient was seen and evaluated for this here earlier today and did have packing placed to the right nostril. The patient states that throughout the day today the nose has continued to bleed. States that whenever he stands up or moves around it starts dripping from the packing area. Patient states he can still feel the blood going on the back of his throat as well. Patient states that since having the packing and he has developed a headache. Patient states he has not been able to take any of his medications today due to this. Patient does take Plavix and aspirin. No history of nosebleeds. States he is feeling somewhat weak but denies any dizziness. Patient denies any recent rash, fever, chills, shortness breath, chest pain, abdominal pain, nausea, vomiting, diarrhea, constipation, back pain , numbness, tingling, dizziness, weakness, hematuria, dysuria, urinary urgency, urinary frequency, visual changes, or any other complaints. - Related Data Home Medications Medication Instructions Recorded Confirmed Atorvastatin [Lipitor] 40 mg PO HS 02/10/15 06/26/17 Clopidogrel Bisulfate [Plavix] 75 mg PO DAILY 02/10/15 06/26/17 Hydrochlorothiazide [Hydrodiuril] 25 mg PO DAILY 02/10/15 06/26/17 Losartan Potassium 100 mg PO DAILY 02/10/15 06/26/17 Metoprolol Tartrate [Lopressor] 50 mg PO BID 02/10/15 06/26/17 Oxybutynin Chloride [Oxybutynin 15 mg PO DAILY 02/10/15 06/26/17 Chloride ER] Aspirin EC [Ecotrin Low Dose] 81 mg PO DAILY 08/08/16 06/26/17 Previous Rx's Medication Instructions Recorded Cephalexin [Keflex] 500 mg PO Q6HR #40 cap 06/26/17 Allergies Allergy/AdvReac Type Severity Reaction Status Date / Time No Known Allergies Allergy Verified 06/26/17 17:24 Review of Systems ROS Statement: Those systems with pertinent positive or pertinent negative responses have been documented in the HPI. ROS Other: All systems not noted in ROS Statement are negative. Past Medical History Past Medical History: Coronary Artery Disease (CAD), Cancer, Hyperlipidemia, Hypertension, Vascular Disorder Additional Past Medical History / Comment(s): Prostate cancer with prostatectomy , numbness bilateral hands, PVD, recent tooth infection-completed ABX. History of Any Multi-Drug Resistant Organisms: None Reported Past Surgical History: Heart Catheterization With Stent, Hernia Repair, Orthopedic Surgery, Prostate Surgery Additional Past Surgical History / Comment(s): Prostatectomy, PCI with stent to LAD, arteriogram, R common iliac stent, R eye muscle repair as child, colonoscopy, bilateral inquinal hernia repairs, L middle finger fx with surgery. Past Anesthesia/Blood Transfusion Reactions: No Reported Reaction Date of Last Stent Placement:: 03/28/10 Past Psychological History: No Psychological Hx Reported Smoking Status: Current every day smoker Past Alcohol Use History: Daily Past Drug Use History: None Reported - Past Family History Father Additional Family Medical History / Comment(s): Father at the age of 50yrs from brain aneurysm rupture. Mother Family Medical History: Diabetes Mellitus, Pneumonia Additional Family Medical History / Comment(s): Mother of pneumonia at the age of 50yrs. General Exam Limitations: no limitations General appearance: alert, in no apparent distress, other (This is a well- developed, well-nourished adult male patient in no acute distress. Vital signs upon presentation are temperature 97.1F, pulse 110, respirations 18, blood pressure 187/86, pulse ox 98% on room air.) Eye exam: Present: normal appearance, PERRL, EOMI. Absent: scleral icterus, conjunctival injection, periorbital swelling ENT exam: Present: normal exam, normal oropharynx, mucous membranes moist, other (Nasal packing present to the right nostril, there is some minor bleeding from the packing. No evidence of bleeding in the pharynx. ) Respiratory exam: Present: normal lung sounds bilaterally. Absent: respiratory distress, wheezes, rales, rhonchi, stridor Cardiovascular Exam: Present: regular rate, normal rhythm, normal heart sounds. Absent: systolic murmur, diastolic murmur, rubs, gallop, clicks GI/Abdominal exam: Present: soft, normal bowel sounds. Absent: distended, tenderness, guarding, rebound, rigid Neurological exam: Present: alert, oriented X3, CN II-XII intact Psychiatric exam: Present: normal affect, normal mood Skin exam: Present: warm, dry, intact, normal color. Absent: rash Course Vital Signs 06/26/17 06/26/17 06/26/17 17:12 18:03 19:40 Temperature 97.1 F L 97.5 F L Pulse Rate 110 H 98 92 Respiratory 18 18 18 Rate Blood Pressure 187/86 159/90 159/95 O2 Sat by Pulse 98 98 97 Oximetry Medical Decision Making - Medical Decision Making 61-year-old male patient presented to the emergency department today for evaluation of continued bleeding from his nose after packing. Patient had his packing placed earlier today for continued to have bleeding throughout the day. Murocel packing was removed, no evidence of anterior bleeding. I did place a Rhino Rocket packing. Patient had no further bleeding during his stay. Labs reviewed and were unremarkable. Hemoglobin is stable. Patient will be discharged home at this time to follow-up with your nose and throat specialty. He is checked her to complete his antibiotic prescription. He is instructed to return here immediately for any new, worsening, or concerning symptoms. He verbalizes understanding and agrees with this plan. - Lab Data Result diagrams: 06/26/17 17:59 Lab Results 06/26/17 06/26/17 Range/Units 17:59 18:12 WBC 8.0 (3.8-10.6) k/uL RBC 4.13 L (4.30-5.90) m/uL Hgb 13.9 (13.0-17.5) gm/dL Hct 39.2 (39.0-53.0) % MCV 95.1 (80.0-100.0) fL MCH 33.8 (25.0-35.0) pg MCHC 35.5 (31.0-37.0) g/dL RDW 14.5 (11.5-15.5) % Plt Count 339 (150-450) k/uL Neutrophils % 59 % Lymphocytes % 27 % Monocytes % 8 % Eosinophils % 3 % Basophils % 1 % Neutrophils # 4.7 (1.3-7.7) k/uL Lymphocytes # 2.2 (1.0-4.8) k/uL Monocytes # 0.6 (0-1.0) k/uL Eosinophils # 0.2 (0-0.7) k/uL Basophils # 0.0 (0-0.2) k/uL PT 10.4 (9.0-12.0) sec INR 1.1 (<1.2) Disposition Clinical Impression: Epistaxis Disposition: HOME SELF-CARE Condition: Good Instructions: Nosebleed (ED) Additional Instructions: Follow up with ENT specialist as soon as possible. Take antibiotics as directed. Take BP medication as soon as you get home. Return here immediately for any new, worsening, or concerning symptoms. Is patient prescribed a controlled substance at d/c from ED?: No Referrals: Tomas Wetzel MD [Primary Care Provider] - 1-2 days Stefano Jiang DO [Doctor of Osteopathic Medicine] - 1-2 days Time of Disposition: 19:29
[2017-06-26 18:31] LABS: INR 1.1 (<1.2); Prothrombin Time 10.4 sec (9.0-12.0)
[2017-06-26] MEDS ORDERED: CEPHALEXIN 500MG STARTER PACK 4 CAP BTL PO STA (19:27)
[2017-06-26 19:42] VITALS: BP 159/95; PULSE 92; TEMP 97.5
== END 2017-06-26 19:43 | disposition home or self-care (01) ==
LOC: EC 16:33
DX: R04.0 Epistaxis (principal); I25.10 Atherosclerotic heart disease of native coronary artery without angina pectoris; E78.5 Hyperlipidemia, unspecified; I10 Essential (primary) hypertension; I73.9 Peripheral vascular disease, unspecified; F17.200 Nicotine dependence, unspecified, uncomplicated; Z95.5 Presence of coronary angioplasty implant and graft; Z79.02 Long term (current) use of antithrombotics/antiplatelets; Z79.82 Long term (current) use of aspirin; Z79.899 Other long term (current) drug therapy
CPT/HCPCS: 30901; 36415; 85025; 85610; 96374; 99283

== ENCOUNTER → 2018-11-22 | Outpatient (CLI) | payer OTHER ==
[2018-11-22 09:44] LABS: HCT 45.6 % (39.0-53.0); HGB 16.1 gm/dL (13.0-17.5); MCH 34.3 pg (25.0-35.0); MCHC 35.3 g/dL (31.0-37.0); MCV 97.1 fL (80.0-100.0); Mean Platelet Volume 6.2; Platelet Count 292 k/uL (150-450); RDW 13.3 % (11.5-15.5); WBC 5.4 k/uL (3.8-10.6)
[2018-11-22 16:17] LABS: African American GFR (CKD) 109.4 (60.0-200.0); Anion Gap 5.4 mmol/L (4.00-12.00); BUN/Creat Ratio 8.75 Ratio (12.00-20.00); Calcium 9.7 mg/dL (8.7-10.3); Carbon Dioxide 29.6 mmol/L (21.6-31.8); Chol/HDL Ratio 2.98; LDL Cholesterol,Calculated 54.4 mg/dL (0.0-131.0); Potassium 5.3 mmol/L (3.5-5.5); VLDL Calculation 24.6 mg/dL (5.00-40.00)
== END | disposition home or self-care (01) ==
LOC: LABWHC1 08:30
PROVIDERS: ATTEND Nurse Practitioner Family
DX: I10 Essential (primary) hypertension (principal); E78.5 Hyperlipidemia, unspecified; E87.8 Other disorders of electrolyte and fluid balance, not elsewhere classified; I25.10 Atherosclerotic heart disease of native coronary artery without angina pectoris; R79.9 Abnormal finding of blood chemistry, unspecified
CPT/HCPCS: 36415; 80048; 80061; 85027

== ENCOUNTER 2020-01-05 08:01 | Day surgery (SDC) | payer MEDICARE, OTHER ==
[2020-01-01 10:55] VITALS: BMI 21.9
[~2020-01-05 08:01] MED LIST: LACTATED RINGERS 1,000 ML IV SCH
[2020-01-05 08:22] VITALS: TEMP 96.3
[2020-01-05] MEDS ORDERED: PROPOFOL 10 MG/ML 20 ML VIAL IV ONE (08:55)
--- NOTE | 2020-01-05 09:00 | P.GSHP ---
History of Present Illness H&P Date: 01/05/20 Chief Complaint: Change in bowel habits 64-year-old male here today for colonoscopy. Last colonoscopy 2013. Patient had a polyp that appeared hyperplastic. I do not have the pathology findings from that study. Apparently he was advised to have a follow-up in 2 years. Si nce that time patient recently has had complaints of incomplete evacuation and frequent loose stools. No rectal bleeding. No family history of colon cancer Past Medical History Past Medical History: Coronary Artery Disease (CAD), Cancer, Hyperlipidemia, Hypertension, Myocardial Infarction ([place]), Vascular Disorder Additional Past Medical History / Comment(s): Prostate cancer with prostatectomy, PVD, Last Myocardial Infarction Date:: 2011 History of Any Multi-Drug Resistant Organisms: None Reported Past Surgical History: Heart Catheterization With Stent, Hernia Repair, Orthopedic Surgery, Prostate Surgery Additional Past Surgical History / Comment(s): Prostatectomy, PCI with stent to LAD, arteriogram, R common iliac stent, R eye muscle repair as child, colonoscopy, bilateral inquinal hernia repairs, L middle finger fx with surgery. Past Anesthesia/Blood Transfusion Reactions: No Reported Reaction Date of Last Stent Placement:: 03/28/10 Smoking Status: Current every day smoker - Past Family History Father Additional Family Medical History / Comment(s): Father at the age of 50yrs from brain aneurysm rupture. Mother Family Medical History: Diabetes Mellitus, Pneumonia Additional Family Medical History / Comment(s): Mother of pneumonia at the age of 50yrs. Medications and Allergies Home Medications Medication Instructions Recorded Confirmed Type Atorvastatin [Lipitor] 40 mg PO HS 02/10/15 01/01/20 History Clopidogrel Bisulfate [Plavix] 75 mg PO DAILY 02/10/15 01/01/20 History Metoprolol Tartrate [Lopressor] 50 mg PO BID 02/10/15 01/01/20 History Hydrochlorothiazide 12.5 mg PO QAM 01/01/20 01/01/20 History [hydroCHLOROthiazide] Multivitamins, Thera [Multivitamin 1 tab PO DAILY 01/01/20 01/01/20 History (formulary)] Ramipril [Altace] 5 mg PO DAILY 01/01/20 01/01/20 History Allergies Allergy/AdvReac Type Severity Reaction Status Date / Time No Known Allergies Allergy Verified 01/05/20 08:14 Surgical - Exam Vital Signs Temp Pulse Resp BP Pulse Ox 96.3 F L 83 17 152/81 99 01/05/20 08:21 01/05/20 08:21 01/05/20 08:21 01/05/20 08:21 01/05/20 08:21 Physical exam: General: Well-developed, well-nourished HEENT: Normocephalic, sclerae nonicteric Abdomen: Nontender, nondistended Extremities: No edema Neuro: Alert and oriented Assessment and Plan (1) Change in bowel habits Narrative/Plan: Will proceed with colonoscopy Current Visit: Yes Status: Acute Code(s): R19.4 - CHANGE IN BOWEL HABIT SNOMED Code(s): 677604547
--- NOTE | 2020-01-05 09:21 | P.PCN ---
Date of Procedure: 01/05/20 Procedure(s) Performed: PREOPERATIVE DIAGNOSIS: Personal history of colon polyps, change in bowel habits POSTOPERATIVE DIAGNOSIS: Pandiverticulosis, multiple polyps PROCEDURE: Colonoscopy with snare polypectomy and biopsy ANESTHESIA: MAC SURGEON: Urbano Hassan M.D. SPECIMENS: Polyps ENDOSCOPIC PROCEDURE: The patient was placed on the endoscopy table in the left decubitus position. The Olympus colonoscope was inserted into the anus and passed under direct visualization to the base of the cecum. The appendiceal orifice was visualized. From that point the scope was slowly withdrawn inspecting all surfaces carefully. There were 2 small polyps in the cecum both removed using the cold biopsy forceps. In the ascending colon a small polyp was seen and removed using the snare with cautery technique. The transverse and descending colon appeared normal. In the sigmoid colon another small polyp was removed using the snare with cautery technique. In the rectum another small polyp was seen and removed using the snare with cautery technique. The remainder of the rectum appeared normal. The patient had diverticulosis throughout the colon without inflammatory changes. Digital rectal examination was normal. The patient was taken to the recovery room in stable condition per anesthesia guidelines. RECOMMENDATIONS: Await biopsy results but anticipate follow-up colonoscopy 5 years.
[2020-01-05 09:33] VITALS: RESP 16
[2020-01-05 09:48] VITALS: BP 121/73; PULSE 66
== END 2020-01-05 10:05 | disposition home or self-care (01) ==
LOC: ORWHC2ENDO 08:01
PROVIDERS: ATTEND Surgery
DX: D12.2 Benign neoplasm of ascending colon (principal); D12.0 Benign neoplasm of cecum; K63.5 Polyp of colon; D12.5 Benign neoplasm of sigmoid colon; D12.8 Benign neoplasm of rectum; K57.30 Diverticulosis of large intestine without perforation or abscess without bleeding; I25.10 Atherosclerotic heart disease of native coronary artery without angina pectoris; E78.5 Hyperlipidemia, unspecified; I10 Essential (primary) hypertension; I25.2 Old myocardial infarction; I73.9 Peripheral vascular disease, unspecified; F17.200 Nicotine dependence, unspecified, uncomplicated; Z86.010 Personal history of colon polyps; Z85.46 Personal history of malignant neoplasm of prostate; Z90.79 Acquired absence of other genital organ(s); Z95.5 Presence of coronary angioplasty implant and graft; Z87.19 Personal history of other diseases of the digestive system; Z98.890 Other specified postprocedural states; Z87.81 Personal history of (healed) traumatic fracture; Z79.899 Other long term (current) drug therapy; Z79.02 Long term (current) use of antithrombotics/antiplatelets; Z97.2 Presence of dental prosthetic device (complete) (partial); Z82.49 Family history of ischemic heart disease and other diseases of the circulatory system; Z83.3 Family history of diabetes mellitus; Z82.5 Family history of asthma and other chronic lower respiratory diseases
CPT/HCPCS: 45385; 45380; 88305; J2704

== ENCOUNTER → 2020-12-26 | Outpatient (CLI) | payer MEDICARE, OTHER ==
--- NOTE | 2020-12-26 15:07 | US ---
EXAMINATION TYPE: US carotid duplex BILAT DATE OF EXAM: 12/26/2020 COMPARISON: NONE CLINICAL HISTORY: R09.89 Carotid Bruit. HTN, Current Smoker EXAM MEASUREMENTS: RIGHT: Peak Systolic Velocity (PSV) cm/sec ----- Right CCA: 62.7cm ----- Right ICA: 87.3 cm ----- Right ECA: 155cm ICA/CCA ratio: 1.39 RIGHT: End Diastole cm/sec ----- Right CCA: 16.8 cm ----- Right ICA: 25.8 cm ----- Right ECA: 33.8 cm LEFT: Peak Systolic Velocity (PSV) cm/sec ----- Left CCA: 83.9 cm ----- Left ICA: 96.0 cm ----- Left ECA: 147 cm ICA/CCA ratio: 1.14 LEFT: End Diastole cm/sec ----- Left CCA: 22.0 cm ----- Left ICA: 32.9 cm ----- Left ECA: 31.2 cm VERTEBRALS (direction of flow): Right Vertebral: Antegrade Left Vertebral: Antegrade Rhythm: Normal Bilateral minimal plaque seen without high velocity. IMPRESSION: No evidence for hemodynamically significant stenosis. Criteria for Assigning % of Stenosis / Diameter reduction (Estimation based on the indirect measurements of the internal carotid artery velocities (ICA PSV). 1. Normal (no stenosis)=ICA PSV < 125 cm/s: ratio < 2.0: ICA EDV<40 cm/s. 2. Less than 50% stenosis=ICA PSV < 125 cm/s: ratio < 2.0: ICA EDV<40 cm/s. 3. 50 to 69% stenosis=ICA PSV of 125 to 230 cm/s: ration 2.0 ? 4.0: ICA EDV 40-100 cm/s. 4. Greater than 70% stenosis to near occlusion= ICA PSV > 230 cm/s: ratio > 4.0: ICA EDV > 100 cm/s. 5. Near occlusion= ICA PSV velocities may be low or undetectable: variable ratio and ICA EDV. 6. Total occlusion=unable to detect flow.
--- NOTE | 2020-12-28 12:03 | P.ARTDOP ---
Arterial Doppler LOWER EXTREMITY ARTERIAL DOPPLER: DATE OF SERVICE: 12/26/2020 Reason for study: Bilateral ambulatory hip pain. Doppler waveforms: Multiphasic bilaterally throughout. Pulse volume recording: []. Pressure gradients: Mild gradients above the ankle. Ankle-brachial indices: 0.96 on the right and 0.88 on the left. Toe brachial indices: 0.7 on the right, 2.9 on the left Impression: The right side is normal. There is probably some mild right fem-pop disease. Low toe pressure on the right is probably an aberrancy. Not likely to related to hip pain. Clinical correlation recommended..
== END | disposition home or self-care (01) ==
LOC: RADUSWWP 13:42
PROVIDERS: ATTEND Family Medicine
DX: R09.89 Other specified symptoms and signs involving the circulatory and respiratory systems (principal); I10 Essential (primary) hypertension; F17.210 Nicotine dependence, cigarettes, uncomplicated; M25.551 Pain in right hip; M25.552 Pain in left hip
CPT/HCPCS: 93880; 93922

== ENCOUNTER → 2023-02-04 | Outpatient (CLI) | payer MEDICARE, OTHER ==
--- NOTE | 2023-02-04 13:53 | US ---
EXAMINATION TYPE: US venous doppler duplex LE RT DATE OF EXAM: 02/04/2023 1:35 PM COMPARISON: NONE CLINICAL INDICATION: Male, 67 years old with history of M79.604 PAIN IN RIGHT LEG intermittent x 4-8 weeks due to bowling injury; has become constant within last 4 dyas. Hx HTN and borderline diabetic ; SIDE PERFORMED: Right TECHNIQUE: The lower extremity deep venous system is examined utilizing real time linear array sonog nick with graded compression, doppler sonography and color-flow sonography. VESSELS IMAGED: Common Femoral Vein Deep Femoral Vein Greater Saphenous Vein * Femoral Vein Popliteal Vein Small Saphenous Vein * Proximal Calf Veins (* superficial vessels) Right Leg: Negative for DVT Left Leg: N/A IMPRESSION: Grayscale, color doppler, spectral doppler imaging performed of the deep veins of the lo wer extremities. There is normal flow, compressibility, vascular waveforms.
== END | disposition home or self-care (01) ==
LOC: RADUSWWP 13:19
PROVIDERS: ATTEND Family Medicine
DX: M79.604 Pain in right leg (principal); I10 Essential (primary) hypertension

== ENCOUNTER → 2023-04-09 | Outpatient (CLI) | payer MEDICARE ==
--- NOTE | 2023-04-09 10:06 | CT ---
EXAMINATION TYPE: CT abdomen pelvis wo con CT DLP: 668 mGycm, Automated exposure control for dose reduction was used. DATE OF EXAM: 04/09/2023 9:54 AM COMPARISON: 12/24/2016 CLINICAL INDICATION:Male, 67 years old with history of R10.31 RLQ pain; RLQ pain TECHNIQUE: Axial CT abdomen pelvis wo con;Sagittal and coronal reformats were created on a separate workstation. Contrast used: mL of , (none if empty) Oral contrast used: with Oral Contrast (none if empty) FINDINGS: LOWER CHEST: Unremarkable ABDOMEN LIVER: Unremarkable GALLBLADDER AND BILE DUCTS: Unremarkable. PANCREAS: Unremarkable. SPLEEN: Unremarkable. ADRENAL GLANDS: Unremarkable. KIDNEYS AND URETERS: No evidence of hydronephrosis or renal calculus. The ureters are unremarkable. Right renal cyst. PELVIS BLADDER: Unremarkable REPRODUCTIVE: Unremarkable. ABDOMEN & PELVIS STOMACH AND BOWEL: No evidence of bowel obstruction. The appendix is normal. Scattered colonic divert icula throughout the colon and worse within the cecum and ascending colon. PERITONEUM/RETROPERITONEUM: No evidence of pneumoperitoneum or free fluid. VASCULATURE: No evidence of aortic aneurysm. Moderate atherosclerosis of the arterial vasculature. St ent graft noted in the right common iliac artery. MUSCULOSKELETAL: No acute osseous abnormalities. Mild disc degeneration changes are present throughou t the thoracolumbar spine. LYMPH NODES: No gross evidence for lymphadenopathy. SOFT TISSUE/ABDOMINAL WALL: Unremarkable IMPRESSION: There is extensive diverticula in the ascending colon may be subtle inflammation changes around the c ecum and ascending colon which could represent mild diverticulitis. The appendix is normal. Otherwise no evidence for acute right lower quadrant pain process. No right-sided obstructive uropathy or calc ulus.
== END | disposition home or self-care (01) ==
LOC: RADCTMAIN 08:12
PROVIDERS: ATTEND Family Medicine
DX: K57.30 Diverticulosis of large intestine without perforation or abscess without bleeding (principal)
CPT/HCPCS: 74176

== ENCOUNTER → 2024-01-07 | Outpatient (CLI) | payer MEDICARE ==
--- NOTE | 2024-01-07 14:08 | US ---
EXAMINATION TYPE: US venous doppler duplex LE RT DATE OF EXAM: 01/07/2024 1:58 PM COMPARISON: NONE CLINICAL INDICATION: Male, 68 years old with history of R60.0 EDEMA; Right hip replacement 12/04; Fel t pop posterior thigh at PT 3 weeks ago; On plavix, Pain, Swelling TECHNIQUE: The lower extremity deep venous system is examined utilizing real time linear array sonog nick with graded compression, color doppler sonography, and spectral doppler. SIDE PERFORMED: Right FINDINGS: VESSELS IMAGED: Common Femoral Vein Deep Femoral Vein Greater Saphenous Vein * Femoral Vein Popliteal Vein Small Saphenous Vein * Proximal Calf Veins (* superficial vessels) Right Leg: Negative for DVT Left Leg: NA IMPRESSION: 1 right lower extremity ultrasound negative for deep venous thrombosis. [facility], , 01/07/2024 2:06 PM
== END | disposition home or self-care (01) ==
LOC: RADUSWWP 13:19
PROVIDERS: ATTEND Family Medicine
DX: R60.0 Localized edema (principal); Z79.02 Long term (current) use of antithrombotics/antiplatelets; Z96.641 Presence of right artificial hip joint

== ENCOUNTER → 2024-07-17 | Outpatient (CLI) | payer MEDICARE ==
--- NOTE | 2024-07-17 13:59 | MR ---
EXAMINATION TYPE: MR lumbar spine wo con DATE OF EXAM: 07/17/2024 1:32 PM COMPARISON: 04/09/2023.. CLINICAL INDICATION: Male, 68 years old with history of M47.816 SPONDYLOSIS W/O MYELOPATHY OR RADICUL OPATH; PHH, TECHNIQUE: Multi planar, multi sequence imaging was performed utilizing: T1-weighted, T2-weighted, a nd turbo inversion recovery imaging of the lumbar spine. IV Contrast: mL (None, if empty) FINDINGS: Alignment: The lumbar vertebral bodies have preserved heights and alignment. Cord: The conus medullaris and the distal spinal cord appear unremarkable with regards to their signa l intensity and morphology. Bones/Discs: Mild degeneration changes throughout the spine with osteophyte formation and facet joint arthropathy. Multilevel disc desiccation is present. No abnormal inversion recovery signal to sugges t bony edema. T12-L1: No evidence of significant spinal canal stenosis or neural foraminal stenosis. L1-L2: No evidence of significant spinal canal stenosis or neural foraminal stenosis. L2-L3: No evidence of significant spinal canal stenosis or neural foraminal stenosis. L3-L4: Disc bulge and facet joint arthropathy result in mild spinal canal and mild bilateral neural f oraminal stenosis. L4-L5: Disc bulge and facet joint arthropathy result in mild spinal canal and mild bilateral neural f oraminal stenosis. L5-S1: Disc bulge and facet joint arthropathy result in mild spinal canal and mild bilateral neural f oraminal stenosis. No significant spinal canal or neural foraminal stenosis in the remainder of the visualized levels. Other findings: Right renal high T2 signal cyst measuring up to 6.1 cm. This is partially field-of-v iew. IMPRESSION: 1. No definitive evidence of disc herniation or significant spinal canal stenosis. 2. Multilevel disc degeneration with associated osteoarthritic changes. [facility], , 07/17/2024 1:56 PM
== END | disposition home or self-care (01) ==
LOC: RADMRIMAIN 12:39
PROVIDERS: ATTEND Physical Medicine & Rehabilitation
DX: M51.16 Intervertebral disc disorders with radiculopathy, lumbar region (principal); M43.16 Spondylolisthesis, lumbar region; M47.26 Other spondylosis with radiculopathy, lumbar region
CPT/HCPCS: 72148